=== PATIENT | female | born 1955 | race Two or more races ===

== ENCOUNTER 2024-03-13 10:25 | Outpatient (CLI) | payer OTHER ==
[~2024-03-13 10:25] MED LIST: LEVOTHYROXINE25 MCG; METFORMIN HCL500 M3; PEPCID AC10 MG; SINGULAIR4 MG; VERELAN PM100 MG
== END 2024-03-13 10:31 | disposition home or self-care (01) ==
LOC: RAD 10:25
PROVIDERS: ATTEND Orthopaedic Surgery
DX: S42.232D 3-part fracture of surgical neck of left humerus, subsequent encounter for fracture with routine healing (principal)

== ENCOUNTER 2024-04-01 11:37 | Outpatient (CLI) | payer OTHER | END 2024-04-01 11:42 | disposition home or self-care (01) | LOC: TOM 11:37 | PROVIDERS: ATTEND Orthopaedic Surgery | DX: M25.561 Pain in right knee (principal); M25.562 Pain in left knee; S42.232D 3-part fracture of surgical neck of left humerus, subsequent encounter for fracture with routine healing; Z68.37 Body mass index [BMI] 37.0-37.9, adult ==

== ENCOUNTER → 2024-04-18 06:56 | Outpatient (CLI) | payer OTHER | END | disposition home or self-care (01) | LOC: LAB 06:56 | PROVIDERS: ATTEND Orthopaedic Surgery | DX: E55.9 Vitamin D deficiency, unspecified (principal); M85.9 Disorder of bone density and structure, unspecified; E56.1 Deficiency of vitamin K ==

== ENCOUNTER 2024-04-18 07:25 | Outpatient (CLI) | payer OTHER | END 2024-04-18 07:34 | disposition home or self-care (01) | LOC: TOM 07:25 | PROVIDERS: ATTEND Orthopaedic Surgery | DX: M25.562 Pain in left knee (principal); M23.92 Unspecified internal derangement of left knee | CPT/HCPCS: 73721 ==

== ENCOUNTER 2024-06-10 10:01 | Outpatient (CLI) | payer OTHER | END 2024-06-10 10:04 | disposition home or self-care (01) | LOC: SONOGRAMA 10:01 | PROVIDERS: ATTEND Orthopaedic Surgery | DX: M25.512 Pain in left shoulder (principal) ==

== ENCOUNTER 2024-09-25 07:29 | Outpatient (CLI) | payer OTHER | END 2024-09-25 07:44 | disposition home or self-care (01) | LOC: RAD 07:29 | PROVIDERS: ATTEND Orthopaedic Surgery | DX: M25.512 Pain in left shoulder (principal) ==

== ENCOUNTER 2024-10-16 08:20 | Outpatient (CLI) | payer OTHER | END 2024-10-16 08:32 | disposition home or self-care (01) | LOC: MAMO-SONO 08:20 | PROVIDERS: ATTEND Orthopaedic Surgery | DX: M54.6 Pain in thoracic spine (principal); M54.50 Low back pain, unspecified; S42.232D 3-part fracture of surgical neck of left humerus, subsequent encounter for fracture with routine healing; Z12.31 Encounter for screening mammogram for malignant neoplasm of breast; R92.2 Inconclusive mammogram; R92.0 Mammographic microcalcification found on diagnostic imaging of breast; E03.8 Other specified hypothyroidism; E11.69 Type 2 diabetes mellitus with other specified complication; E78.00 Pure hypercholesterolemia, unspecified; I87.2 Venous insufficiency (chronic) (peripheral); I73.9 Peripheral vascular disease, unspecified; Z68.37 Body mass index [BMI] 37.0-37.9, adult; I10 Essential (primary) hypertension; J44.9 Chronic obstructive pulmonary disease, unspecified; K29.50 Unspecified chronic gastritis without bleeding; F33.9 Major depressive disorder, recurrent, unspecified | CPT/HCPCS: 72070; 72100; 73202; 76641; 77067; Q9965 ==